=== PATIENT | female | born 1995 | race Caucasian/White ===

== ENCOUNTER 2017-07-20 11:37 | Outpatient (CLI) | payer MEDICAID ==
[2017-07-20 12:04] LABS: ADD MAN DIFF? NO
[2017-07-20 12:09] LABS: WHITE BLOOD COUNT 7.1 10^3/ul (4.8-10.8)
[2017-07-20 12:09] LABS: BASOPHILS % 0.3 % (0.0-2.0); EOSINOPHILS % 0.6 % (0.0-7.0); HEMATOCRIT 36.6 % (37.0-47.0); HEMOGLOBIN 12.3 g/dl (12.0-16.0); LYMPHOCYTES # 1.5 10^3/ul (0.8-2.9); LYMPHOCYTES % 21.7 % (15.0-51.0); MEAN CORPUSCULAR HEMOGLOBIN 31.8 pg (29.0-33.0); MEAN CORPUSCULAR HGB CONC 33.6 g/dl (32.0-37.0); MEAN CORPUSCULAR VOLUME 94.6 fl (82.0-101.0); MEAN PLATELET VOLUME 10.9 fl (7.4-10.4); MONOCYTE # 0.7 10^3/ul (0.3-0.9); MONOCYTES % 9.8 % (0.0-11.0); NEUTROPHIL # 4.8 10^3/ul (1.6-7.5); NEUTROPHILS % 66.9 % (39.0-77.0); PLATELET COUNT 142 10^3/UL (140-415); RED BLOOD COUNT 3.87 10^6/ul (4.20-5.40); RED CELL DISTRIBUTION WIDTH 12.6 % (11.5-14.5)
[2017-07-20 12:12] LABS: ADD UMIC YES; UR ASCORBIC ACID NEGATIVE (NEGATIVE); UR BACTERIA FEW /HPF (NONE SEEN); UR BILIRUBIN (Dip) NEGATIVE (NEGATIVE); UR BLOOD (Dip) NEGATIVE (NEGATIVE); UR CLARITY SLIGHTLY CLOUDY (CLEAR); UR COLOR YELLOW (YELLOW); UR GLUCOSE (Dip) NEGATIVE (NEGATIVE); UR KETONES (Dip) NEGATIVE (NEGATIVE); UR LEUKOCYTE ESTERASE (Dip) 1+ Leu/ul (NEGATIVE); UR NITRITE (Dip) NEGATIVE (NEGATIVE); UR RBC 2 /HPF (0-5); UR SPECIFIC GRAVITY (Dip) 1.009 (1.003-1.030); UR SQUAMOUS EPITHELIAL CELL FEW /HPF (FEW); UR TOTAL PROTEIN (Dip) NEGATIVE (NEGATIVE); UR UROBILINOGEN (Dip) NEGATIVE (NEGATIVE); UR WBC 2 /HPF (0-5)
[2017-07-20 12:26] LABS: ALANINE AMINOTRANSFERASE 31 IU/L (13-69); ALBUMIN 3.8 g/dl (3.3-4.9); ALBUMIN/GLOBULIN RATIO 1.22; ALKALINE PHOSPHATASE 198 IU/L (42-121); ANION GAP 12 (8-16); ASPARTATE AMINO TRANSFERASE 24 IU/L (15-46); BILIRUBIN,INDIRECT 0.3 mg/dl (0-1.1); BILIRUBIN,TOTAL 0.3 mg/dl (0.2-1.3); BLOOD UREA NITROGEN 6 mg/dl (7-20); CALCIUM 9.4 mg/dl (8.4-10.2); CARBON DIOXIDE 25 mmol/L (21-31); CHLORIDE 103 mmol/L (97-110); CREATININE 0.58 mg/dl (0.44-1.00); GLUCOSE 87 mg/dl (70-220); POTASSIUM 4.3 mmol/L (3.5-5.1); SODIUM 136 mmol/L (135-144); TOTAL PROTEIN 6.9 g/dl (6.1-8.1); URIC ACID 3.1 mg/dl (3.1-7.9)
[2017-07-20] MEDS: ACETAMINOPHEN 325 MG TAB PO (13:04)
== END 2017-07-20 15:35 | disposition home or self-care (01) ==
LOC: OBT 11:37 → L-D 11:37 → OBT 15:35
DX: O26.893 Other specified pregnancy related conditions, third trimester (principal); R51 Headache; O36.8130 Decreased fetal movements, third trimester, not applicable or unspecified; Z3A.40 40 weeks gestation of pregnancy
CPT/HCPCS: 36415; 76815; 76818; 80053; 81001; 84560; 85025

== ENCOUNTER 2017-07-21 13:20 | Inpatient (IN) | payer MEDICAID ==
[2017-07-21 17:26] LABS: ADD MAN DIFF? NO
[2017-07-21] MEDS ORDERED: IBUPROFEN 600 MG TAB PO (17:30)
[2017-07-21] MEDS ORDERED: MISOPROSTOL 200 MCG TAB PR (17:30)
[2017-07-21] MEDS ORDERED: OXYTOCIN 30 UNITS/LR 500 ML IV ×3 (17:30)
[2017-07-21] MEDS ORDERED: LIDOCAINE 1% (MPF) 30 ML INJ INJ (17:30)
[2017-07-21] MEDS ORDERED: METHYLERGONOVINE 0.2 MG INJ IM (17:30)
[2017-07-21] MEDS ORDERED: CARBOPROST 250 MCG INJ IM (17:30)
[2017-07-21 17:33] LABS: BASOPHILS % 0.1 % (0.0-2.0); EOSINOPHILS # 0.1 10^3/ul (0.0-0.5); EOSINOPHILS % 0.8 % (0.0-7.0); HEMATOCRIT 35.9 % (37.0-47.0); HEMOGLOBIN 12.4 g/dl (12.0-16.0); LYMPHOCYTES # 1.9 10^3/ul (0.8-2.9); LYMPHOCYTES % 25.6 % (15.0-51.0); MEAN CORPUSCULAR HEMOGLOBIN 32.1 pg (29.0-33.0); MEAN CORPUSCULAR HGB CONC 34.5 g/dl (32.0-37.0); MEAN PLATELET VOLUME 10.9 fl (7.4-10.4); MONOCYTE # 0.9 10^3/ul (0.3-0.9); MONOCYTES % 11.8 % (0.0-11.0); NEUTROPHIL # 4.4 10^3/ul (1.6-7.5); NEUTROPHILS % 60.9 % (39.0-77.0); PLATELET COUNT 138 10^3/UL (140-415); RED BLOOD COUNT 3.86 10^6/ul (4.20-5.40); RED CELL DISTRIBUTION WIDTH 12.5 % (11.5-14.5)
[2017-07-21 17:33] LABS: WHITE BLOOD COUNT 7.3 10^3/ul (4.8-10.8)
[2017-07-21] MEDS: LACTATED RINGER'S 1,000 ML IV (17:37)
[2017-07-21] MEDS: MISOPROSTOL 25 MCG CAPSULE PO (17:47)
[2017-07-21 17:52] LABS: INR 0.83; PARTIAL THROMBOPLASTIN TIME 29.1 Sec (25.0-35.0); PROTIME 11.5 Sec (11.9-14.9); PT RATIO 0.9
[2017-07-21 18:26] LABS: HEPATITIS B SURFACE ANTIGEN NEGATIVE (NEGATIVE)
[2017-07-21 22:07] LABS: RAPID PLASMA REAGIN NONREACTIVE (NR)
[2017-07-22] MEDS: LACTATED RINGER'S 1,000 ML IV ×4 (00:40→23:59)
[2017-07-22] MEDS: MISOPROSTOL 25 MCG CAPSULE PO ×3 (05:03→17:47)
[2017-07-22] MEDS: BUTORPHANOL 2 MG INJ IV (20:03)
[2017-07-23] MEDS: BUTORPHANOL 2 MG INJ IV (03:15)
[2017-07-23] MEDS: MISOPROSTOL 25 MCG CAPSULE PO ×2 (06:04)
[2017-07-23] MEDS: LACTATED RINGER'S 1,000 ML IV ×4 (08:04→17:17)
[2017-07-23] MEDS ORDERED: DIPHENHYDRAMINE 50 MG INJ IV (11:30)
[2017-07-23] MEDS ORDERED: ONDANSETRON 4 MG INJ IV (11:30)
[2017-07-23] MEDS ORDERED: NALOXONE (0.4 MG/ML) INJ IV (11:30)
[2017-07-23] MEDS ORDERED: EPHEDrine SULFATE 50 MG/5 ML SYG IV (11:30)
[2017-07-23] MEDS: OXYTOCIN 30 UNITS/LR 500 ML IV (12:14)
[2017-07-23] MEDS: ACETAMINOPHEN 325 MG TAB PO (18:25)
[2017-07-23] MEDS: DEXTROSE 5%-LR 1,000 ML IV (18:25)
[2017-07-23] MEDS: FENTAnyl 2MCG/ML-ROPIV 0.2% 100 ML BAG EPI (22:34)
[2017-07-24] MEDS: AMPICILLIN 2 GM/NS (PMX) 100 ML IVPB (01:19)
[2017-07-24] MEDS: ACETAMINOPHEN 325 MG TAB PO (01:32)
[2017-07-24] MEDS: DEXTROSE 5%-LR 1,000 ML IV (03:36)
[2017-07-24] MEDS: AMPICILLIN 1 GM/NS (PMX) 50 ML IVPB ×2 (05:30→11:50)
[2017-07-24] MEDS: FENTAnyl 2MCG/ML-ROPIV 0.2% 100 ML BAG EPI ×2 (05:53→12:16)
[2017-07-24] MEDS: METOCLOPRAMIDE 10 MG INJ IV (15:25)
[2017-07-24] MEDS: CITRIC ACID/SODIUM CITRATE 15 ML CUP PO (15:25)
[2017-07-24] MEDS: FAMOTIDINE 20 MG INJ IV (15:25)
[2017-07-24] MEDS ORDERED: FENTAnyl 50 MCG/ML VIAL (15:48)
[2017-07-24] MEDS ORDERED: morphine SULFATE/PF (10 MG/10 ML) INJ (15:48)
[2017-07-24] MEDS ORDERED: PHENYLephrine (100 MCG/ML) 5ML SYG ×2 (16:19→16:42)
[2017-07-24] MEDS ORDERED: ONDANSETRON 4 MG INJ (16:24)
[2017-07-24] MEDS ORDERED: OXYTOCIN 30 UNITS/LR 500 ML IV ×2 (16:29→21:00)
[2017-07-24] MEDS ORDERED: MIDAZOLAM 1 MG/ML 2 ML INJ (16:37)
[2017-07-24] MEDS ORDERED: ZOLPIDEM 5 MG TAB PO (18:00)
[2017-07-24] MEDS ORDERED: DIPHENHYDRAMINE 50 MG INJ IV ×2 (18:00)
[2017-07-24] MEDS ORDERED: HYDROmorphONE (0.2 MG/ML) 10ML SYG IV (18:00)
[2017-07-24] MEDS ORDERED: PROCHLORPERAZINE 10 MG INJ IV (18:00)
[2017-07-24] MEDS ORDERED: MEPERIDINE 25 MG INJ IV (18:00)
[2017-07-24] MEDS ORDERED: FENTAnyl 50 MCG/ML VIAL IV (18:00)
[2017-07-24] MEDS ORDERED: HYDROmorphONE 0.5 MG/0.5 ML SYG IV (18:00)
[2017-07-24] MEDS ORDERED: NALOXONE (0.4 MG/ML) INJ IV (18:00)
[2017-07-24] MEDS ORDERED: KETOROLAC 30 MG INJ IV (18:00)
[2017-07-24] MEDS ORDERED: ONDANSETRON 4 MG INJ IV ×2 (18:00)
[2017-07-24] MEDS: OXYTOCIN 30 UNITS/LR 500 ML IV (20:56)
[2017-07-24] MEDS ORDERED: METHYLERGONOVINE 0.2 MG INJ IM (21:00)
[2017-07-24] MEDS: SENNA/DOCUSATE NA (8.6MG/50MG) TAB PO (21:00)
[2017-07-24] MEDS ORDERED: CARBOPROST 250 MCG INJ IM (21:00)
[2017-07-24] MEDS ORDERED: MISOPROSTOL 200 MCG TAB PR (21:00)
[2017-07-24] MEDS ORDERED: OXYCODONE/ACETAMINOPHEN (5/325) TAB PO (21:00)
[2017-07-24] MEDS: KETOROLAC 30 MG INJ IV (22:33)
[2017-07-24] MEDS: LACTATED RINGER'S 1,000 ML IV (22:33)
[2017-07-24] MEDS: CEFAZOLIN 2 GM/50 ML (PMX) 50 ML IVPB (22:45)
[2017-07-25] MEDS: HYDROmorphONE 0.5 MG/0.5 ML SYG IV (04:04)
[2017-07-25] MEDS: LACTATED RINGER'S 1,000 ML IV ×2 (07:07→16:05)
[2017-07-25] MEDS: SENNA/DOCUSATE NA (8.6MG/50MG) TAB PO ×2 (08:35→20:35)
[2017-07-25] MEDS: KETOROLAC 30 MG INJ IV (08:36)
[2017-07-25 09:16] LABS: ADD MAN DIFF? NO
[2017-07-25 09:45] LABS: ABNORMAL IP MESSAGE 1; BASOPHILS % 0.2 % (0.0-2.0); EOSINOPHILS % 0.1 % (0.0-7.0); LYMPHOCYTES # 1.5 10^3/ul (0.8-2.9); LYMPHOCYTES % 12.4 % (15.0-51.0); MEAN CORPUSCULAR HEMOGLOBIN 33.2 pg (29.0-33.0); MEAN CORPUSCULAR HGB CONC 35.7 g/dl (32.0-37.0); MEAN PLATELET VOLUME 10.9 fl (7.4-10.4); MONOCYTE # 1.1 10^3/ul (0.3-0.9); MONOCYTES % 9.5 % (0.0-11.0); NEUTROPHILS % 76.9 % (39.0-77.0); PLATELET COUNT 93 10^3/UL (140-415); POSITIVE DIFF @See below; RED BLOOD COUNT 3.01 10^6/ul (4.20-5.40); RED CELL DISTRIBUTION WIDTH 12.6 % (11.5-14.5)
[2017-07-25 09:45] LABS: WHITE BLOOD COUNT 11.7 10^3/ul (4.8-10.8)
[2017-07-25] MEDS: PIPER-TAZO 3.375 GM IV (PMX) 100 ML IVPB ×3 (13:04→23:59)
[2017-07-25] MEDS: OXYCODONE/ACETAMINOPHEN (5/325) TAB PO (16:05)
[2017-07-25] MEDS: IBUPROFEN 800 MG TAB PO ×2 (18:00→21:45)
[2017-07-25] MEDS: LANOLIN 7 GM TUBE TOP (20:36)
[2017-07-26] MEDS: LACTATED RINGER'S 1,000 ML IV ×2 (05:18→20:28)
[2017-07-26] MEDS: PIPER-TAZO 3.375 GM IV (PMX) 100 ML IVPB ×4 (05:25→23:46)
[2017-07-26] MEDS: IBUPROFEN 800 MG TAB PO ×3 (05:25→21:45)
[2017-07-26 08:58] LABS: ADD MAN DIFF? NO
[2017-07-26 09:05] LABS: WHITE BLOOD COUNT 11.8 10^3/ul (4.8-10.8)
[2017-07-26 09:05] LABS: BASOPHILS % 0.3 % (0.0-2.0); EOSINOPHILS # 0.1 10^3/ul (0.0-0.5); EOSINOPHILS % 0.8 % (0.0-7.0); HEMATOCRIT 26.8 % (37.0-47.0); HEMOGLOBIN 9.3 g/dl (12.0-16.0); LYMPHOCYTES # 1.3 10^3/ul (0.8-2.9); LYMPHOCYTES % 11.4 % (15.0-51.0); MEAN CORPUSCULAR HEMOGLOBIN 32.4 pg (29.0-33.0); MEAN CORPUSCULAR HGB CONC 34.7 g/dl (32.0-37.0); MEAN CORPUSCULAR VOLUME 93.4 fl (82.0-101.0); MEAN PLATELET VOLUME 10.6 fl (7.4-10.4); MONOCYTE # 0.9 10^3/ul (0.3-0.9); MONOCYTES % 7.4 % (0.0-11.0); NEUTROPHIL # 9.3 10^3/ul (1.6-7.5); NEUTROPHILS % 78.7 % (39.0-77.0); PLATELET COUNT 104 10^3/UL (140-415); RED BLOOD COUNT 2.87 10^6/ul (4.20-5.40); RED CELL DISTRIBUTION WIDTH 12.6 % (11.5-14.5)
[2017-07-26] MEDS: SENNA/DOCUSATE NA (8.6MG/50MG) TAB PO ×2 (09:14→20:28)
[2017-07-26] MEDS: FERROUS SULFATE (EC) 325 MG TAB PO ×2 (12:25→20:28)
[2017-07-27] MEDS: PIPER-TAZO 3.375 GM IV (PMX) 100 ML IVPB ×2 (05:45→12:00)
[2017-07-27] MEDS: IBUPROFEN 800 MG TAB PO ×3 (05:45→21:30)
[2017-07-27] MEDS: OXYCODONE/ACETAMINOPHEN (5/325) TAB PO (07:02)
[2017-07-27] MEDS ORDERED: DIPHTH/TET/ACEL PERTUSS (ADULT) 0.5 ML VIAL IM* (09:00)
[2017-07-27] MEDS: FERROUS SULFATE (EC) 325 MG TAB PO ×3 (10:20→21:30)
[2017-07-27] MEDS: SENNA/DOCUSATE NA (8.6MG/50MG) TAB PO ×2 (10:20→21:30)
[2017-07-27] MEDS: LEVOFLOXACIN 500 MG TAB PO (17:13)
[2017-07-28] MEDS: LEVOFLOXACIN 500 MG TAB PO (06:13)
[2017-07-28] MEDS: IBUPROFEN 800 MG TAB PO ×3 (06:13→23:17)
[2017-07-28] MEDS: SENNA/DOCUSATE NA (8.6MG/50MG) TAB PO ×2 (09:46→21:34)
[2017-07-28] MEDS: FERROUS SULFATE (EC) 325 MG TAB PO ×3 (09:46→21:34)
[2017-07-28] MEDS: FUROSEMIDE 20 MG INJ IV (18:19)
[2017-07-28 19:07] LABS: TROPONIN-I 0.039 ng/ml (0.00-0.12)
[2017-07-28 19:22] LABS: B-TYPE NATRIURETIC PEPTIDE 6240 PG/ML (0-125)
[2017-07-29 01:41] LABS: TROPONIN-I 0.035 ng/ml (0.00-0.12)
[2017-07-29] MEDS: FUROSEMIDE 20 MG INJ IV ×2 (06:29→17:29)
[2017-07-29] MEDS: IBUPROFEN 800 MG TAB PO ×3 (06:30→22:02)
[2017-07-29] MEDS: LEVOFLOXACIN 500 MG TAB PO (06:30)
[2017-07-29 07:34] LABS: CHOL/HDL RATIO 3.6 RATIO; HDL CHOLESTEROL 40 mg/dl (33-83); LDL CHOLESTEROL,CALCULATED 58 mg/dl; TRIGLYCERIDES 245 mg/dl (0-149)
[2017-07-29 07:34] LABS: CHOLESTEROL 147 mg/dl (100-200)
[2017-07-29 07:45] LABS: TROPONIN-I 0.048 ng/ml (0.00-0.12)
[2017-07-29] MEDS: SENNA/DOCUSATE NA (8.6MG/50MG) TAB PO ×2 (08:51→22:02)
[2017-07-29] MEDS: FERROUS SULFATE (EC) 325 MG TAB PO ×3 (08:51→22:02)
[2017-07-29] MEDS: BENAZEPRIL 5 MG TAB PO (08:51)
[2017-07-30] MEDS: FUROSEMIDE 20 MG INJ IV ×2 (06:21→17:07)
[2017-07-30] MEDS: IBUPROFEN 800 MG TAB PO ×3 (06:21→22:57)
[2017-07-30] MEDS: FERROUS SULFATE (EC) 325 MG TAB PO ×3 (09:06→22:57)
[2017-07-30] MEDS: SENNA/DOCUSATE NA (8.6MG/50MG) TAB PO ×2 (09:06→22:57)
[2017-07-30] MEDS: METOPROLOL (XL) 25 MG TAB PO (09:07)
[2017-07-30] MEDS: BENAZEPRIL 5 MG TAB PO (09:08)
[2017-07-31] MEDS: FUROSEMIDE 20 MG INJ IV (05:40)
[2017-07-31] MEDS: IBUPROFEN 800 MG TAB PO ×2 (05:42→12:43)
[2017-07-31] MEDS: FERROUS SULFATE (EC) 325 MG TAB PO ×2 (08:23→12:43)
[2017-07-31] MEDS: BENAZEPRIL 5 MG TAB PO (08:24)
[2017-07-31] MEDS: METOPROLOL (XL) 25 MG TAB PO (08:24)
[2017-07-31] MEDS: SENNA/DOCUSATE NA (8.6MG/50MG) TAB PO (08:24)
== END 2017-07-31 18:00 | disposition home or self-care (01) | DRG 765 ==
LOC: OBT 13:20 → L-D 07-24 15:40 → MS4 07-28 16:05 → L-D 13:20 → PP1 07-24 20:36 → OBT 15:50 → L-D 15:50
PROVIDERS: Obstetrics & Gynecology
PROC: 10D00Z1 Extraction of Products of Conception, Low, Open Approach (ICD-10-PCS; principal; 2017-07-24)
PROC: 3E033VJ Introduction of Other Hormone into Peripheral Vein, Percutaneous Approach (ICD-10-PCS; 2017-07-24)
DX: O48.0 Post-term pregnancy (principal); I50.23 Acute on chronic systolic (congestive) heart failure; J18.9 Pneumonia, unspecified organism; O90.3 Peripartum cardiomyopathy; I42.8 Other cardiomyopathies; O99.42 Diseases of the circulatory system complicating childbirth; O99.02 Anemia complicating childbirth; O62.1 Secondary uterine inertia; Z3A.40 40 weeks gestation of pregnancy; Z37.0 Single live birth
CPT/HCPCS: 62319; 71045; 71046; 76818; 80061; 83880; 84484; 85025; 85610; 85730; 86592; 86900; 86901; 87040; 87086; 87340; 90715; 93005; 93306; 94760; 99464; J1940